=== PATIENT | male | born 1950 | race Caucasian/White ===

== ENCOUNTER 2017-04-30 14:04 | Emergency (ER) | payer MEDICARE | END 2017-04-30 18:05 | disposition home or self-care (01) | LOC: ERS 14:04 | DX: R00.2 Palpitations (principal); E78.5 Hyperlipidemia, unspecified; I10 Essential (primary) hypertension; I47.1 Supraventricular tachycardia; Z87.891 Personal history of nicotine dependence; Z79.82 Long term (current) use of aspirin; Z79.899 Other long term (current) drug therapy | CPT/HCPCS: 99284 ==

== ENCOUNTER 2018-04-02 11:11 | Outpatient (CLI) | payer MEDICARE ==
--- NOTE | 2018-04-02 14:52 | ULT ---
HEPATIC ULTRASOUND DOPPER DUPLEX: 04/02/2018 HISTORY: A 67-year-old male with hepatitis C. TECHNIQUE: Bruno-scale images of the liver and spleen. Color-flow and spectral analysis of major vessels associated with the liver. FINDINGS: The liver is enlarged, has lobular margins, and has heterogeneously increased echogenicity and hetero geneous echotexture. Because of body habitus, the deep portions of the liver are not well visualized . Please note that CT or MRI with and without contrast would be much more sensitive for the detectio n of hepatic neoplasm, compared to ultrasound. The gallbladder is distended, has normal wall thickness, a small amount of sludge, and several tiny, mobile gallstones. The spleen is 16.5 x 5.5 x 5.5 cm, with a lobular hilum. Appropriate pulsed Doppler waveforms with hepatopetal flow in the splenic, main portal, and left and right portal, veins. Hepatic artery waveform normal. Hepatofugal flow with appropriate pulsed Doppler waveform in the left, middle, and right hepatic vein s. IMPRESSION: 1. Hepatic cirrhosis and hepatomegaly. 2. Splenomegaly. 3. Cholelithiasis. 4. Appropriate pulsed Doppler waveforms and directionality of flow in the major vessels associated w ith the liver. POS: JC
== END 2018-04-02 11:12 | disposition home or self-care (01) ==
LOC: SCSULT 11:11
PROVIDERS: ATTEND Internal Medicine Gastroenterology
DX: K74.60 Unspecified cirrhosis of liver (principal); K22.70 Barrett's esophagus without dysplasia; R10.11 Right upper quadrant pain; K80.20 Calculus of gallbladder without cholecystitis without obstruction; R16.2 Hepatomegaly with splenomegaly, not elsewhere classified; Z86.010 Personal history of colon polyps; Z86.19 Personal history of other infectious and parasitic diseases
CPT/HCPCS: 76705

== ENCOUNTER 2018-10-01 09:19 | Outpatient (CLI) | payer MEDICARE ==
[2018-10-01 10:33] LABS: Estimated GFR-MDRD - POC Greater than 90
--- NOTE | 2018-10-01 11:24 | MRI ---
EXAM: MRI of the abdomen without and with contrast COMPARISON: None HISTORY: Cirrhosis of the liver TECHNIQUE: Multiplanar multi sequence MR images were taken of the abdomen without and with IV contras t. FINDINGS: Liver: Slightly nodular in appearance. There is loss of signal on out of phase images consistent with fatty infiltration. Gallbladder: Multiple filling defects consistent with cholelithiasis Common bile duct: Normal caliber without filling defects Adrenal glands: Unremarkable. Kidneys: 5.0 cm right renal cysts. Smaller high T2 signal foci in the right kidney represent smaller cysts. Spleen: Unremarkable. Pancreas: Unremarkable. Retroperitoneum: No enlarged lymph nodes Bones: No marrow signal abnormality. IMPRESSION: 1. Cholelithiasis 2. Right renal cysts 3. Cirrhosis without suspicious liver lesions 4. Fatty liver
[2018-10-01] MEDS ORDERED: Gadobenate Dimeglumine 529 MG/1 ML (20ML VIAL) ONE (16:24)
== END 2018-10-01 09:20 | disposition home or self-care (01) ==
LOC: BICMRI 09:19
PROVIDERS: ATTEND Physician Assistant Medical
DX: K74.60 Unspecified cirrhosis of liver (principal); K22.70 Barrett's esophagus without dysplasia; I85.00 Esophageal varices without bleeding; K80.20 Calculus of gallbladder without cholecystitis without obstruction; N28.1 Cyst of kidney, acquired; K76.0 Fatty (change of) liver, not elsewhere classified; Z86.010 Personal history of colon polyps
CPT/HCPCS: 74183; 82565; A9577

== ENCOUNTER 2019-04-15 09:50 | Outpatient (CLI) | payer MEDICARE ==
--- NOTE | 2019-04-15 10:46 | ULT ---
US Hepatic Doppler: 04/15/2019 12:00 AM CLINICAL HISTORY: Chronic hepatitis. Cirrhosis. STUDY: Right upper quadrant ultrasound of liver. TECHNIQUE: Multiplanar grayscale and color Doppler images were obtained in a ultrasound of the right upper quadrant of the abdomen. Spectral analysis of the Doppler waveforms of the hepatic and splenic vessels were performed. COMPARISON: 04/02/2018 and MRI abdomen 10/01/2018 FINDINGS: Liver: Size: Normal. Echogenicity: Hyperechoic consistent with hepatic steatosis. Contour: Nodular consistent with cirrhosis. Mass: None. Bile ducts: No intrahepatic or extrahepatic biliary dilatation. Common bile duct measures 4 mm. Gallbladder: Cholelithiasis. Pancreas: Head and body appear normal; tail obscured by bowel gas. Hepatic veins: Normal waveforms. Normal directional flow. Portable veins: Normal waveforms. Normal directional flow. Hepatic arteries: Normal waveforms. Normal directional flow. Splenic vein: Normal waveforms. Normal directional flow. Splenic artery: Normal waveforms. Normal directional flow. The spleen is normal in echogenicity without focal lesions and measures 14.3cm in length. IMPRESSION: 1. Fatty liver 2. Cirrhosis with splenomegaly
== END 2019-04-15 09:51 | disposition home or self-care (01) ==
LOC: BICULT 09:50
PROVIDERS: ATTEND Internal Medicine
DX: K22.70 Barrett's esophagus without dysplasia (principal); K80.20 Calculus of gallbladder without cholecystitis without obstruction; K74.60 Unspecified cirrhosis of liver; I85.00 Esophageal varices without bleeding; R10.11 Right upper quadrant pain; K76.0 Fatty (change of) liver, not elsewhere classified; R16.1 Splenomegaly, not elsewhere classified; Z86.010 Personal history of colon polyps
CPT/HCPCS: 76705

== ENCOUNTER 2019-09-06 05:33 | Outpatient (CLI) | payer MEDICARE, OTHER ==
[2019-09-07 12:16] LABS: SARS-CoV-2 MS2 Positive; SARS-CoV-2 N Gene Negative; SARS-CoV-2 S Gene Negative; SARS-CoV-2 orf1ab Negative
== END 2019-09-06 05:34 | disposition home or self-care (01) ==
LOC: LABBT 05:33
PROVIDERS: ATTEND Internal Medicine
DX: Z01.812 Encounter for preprocedural laboratory examination (principal); Z11.59 Encounter for screening for other viral diseases; K80.20 Calculus of gallbladder without cholecystitis without obstruction; K74.60 Unspecified cirrhosis of liver; K22.70 Barrett's esophagus without dysplasia; R10.11 Right upper quadrant pain; Z86.010 Personal history of colon polyps
CPT/HCPCS: 87635; U0003

== ENCOUNTER 2019-09-09 07:20 | Day surgery (SDC) | payer MEDICARE ==
[2019-09-03 12:41] VITALS: BMI 32.7
[2019-09-09] MEDS ORDERED: PROPOFOL 200 MG/20 ML VIAL ONE (11:59)
[2019-09-09] MEDS ORDERED: Lidocaine 1% PF 5 ML VIAL ONE (11:59)
--- NOTE | 2019-09-09 12:48 | OP ---
DATE OF PROCEDURE: 09/09/2019 PROCEDURES PERFORMED: 1. Esophagogastroduodenoscopy (diagnostic). 2. Colonoscopy with polypectomy. INDICATIONS FOR PROCEDURE: Personal history of cirrhosis of the liver (screening for esophageal varices), [place] esophagus, and personal history of colonic polyps. DESCRIPTION OF PROCEDURE: After the risks and benefits of the procedures were explained to the patient including risks of bleeding, infection, perforation, reactions to anesthesia, aspiration and/or pain, informed consent was obtained. The patient was then taken to the endoscopy suite where deep sedation was administered via propofol and anesthesia support. Once adequate sedation was achieved, the standard gastroscope was introduced into the mouth with intubation of the esophagus, stomach, and the proximal small intestines with the findings listed below. The patient tolerated this portion of the procedure well with no immediate perioperative complications. On conclusion of this portion of the procedure, all equipment was removed from the patient and the bed was rotated 180 degrees in anticipation of the colonoscopy. Once the bed was adequately rotated, a digital rectal examination was performed followed by introduction of the standard colonoscope, which was advanced to the terminal ileum without difficulty. The quality of the prep was good with a small amount of semi-solid stool seen throughout the colon, but easily removed with irrigation and suctioning. The patient tolerated this portion of the procedure well with no immediate perioperative complications. On conclusion of the procedure, all equipment was removed from the patient and he was transferred to Day Stay in satisfactory condition. EGD FINDINGS: Esophagus: Normal-appearing mucosa was seen in the proximal and mid esophagus. Small (grade 1/2) esophageal varices were seen in the distal esophagus without any high-risk stigmata of active or recent bleeding. Given his lack of bleeding from a variceal source, no intervention was taken today. [place]-colored mucosa was also seen in the distal esophagus, extending proximally with the maximum extension approximately 1 cm proximal to the gastroesophageal junction. No biopsies were taken today given the concurrent finding of esophageal varices and increased risk of bleeding. The diaphragmatic pinch and the gastroesophageal junction were both well seen at 40 cm past the incisors. There was no evidence of erosions, ulcerations, mass lesions, or active/recent bleeding. Stomach: A mild amount of increased mucosal erythema was seen in the gastric fundus, body and extending into the greater curvature that exhibited a mild mosaic type appearance. There were no other additional findings associated with this. Otherwise, normal-appearing mucosa was seen in the gastric cardia, antrum, and incisura. There was no evidence of erosions, ulcerations, mass lesions, or active/recent bleeding. Duodenum: Normal-appearing mucosa was seen in both the duodenal bulb and second portion of the duodenum. There was no evidence of erosions, ulcerations, mass lesions, or active/recent bleeding. IMPRESSION: 1. Mild portal hypertensive gastropathy. 2. [place]-colored mucosa in the distal esophagus, consistent with prior [place] esophagus ([place] classification C0 M1). 3. Small (grade 1/2) distal esophageal varices without evidence of gastric varices. COLONOSCOPY FINDINGS: Digital rectal exam: Large external hemorrhoids were seen on external examination with mild oozing of blood with manipulation. No masses were palpated on rectal exam. Colon findings: Normal-appearing mucosa was seen at the terminal ileum as well as at the ileocecal valve and appendiceal orifice. Four polyps, measuring 2 to 4 mm in size, were seen in the cecum and completely removed with a combination of biopsy forceps and cold snare polypectomy. They were retrieved and placed in a specimen jar for further evaluation. Five additional polyps were seen in the ascending colon, measuring 2 to 8 mm in size, and removed with a combination of biopsy forceps and snare cautery polypectomy. They were all retrieved and placed in a specimen jar for further evaluation. A 3- to 4-mm polyp was seen in the proximal transverse colon and completely removed with cold snare polypectomy. It was retrieved and placed in a specimen jar for further evaluation. A single diverticulum was seen in the transverse colon as well as multiple small and large mouth diverticula in the descending and sigmoid colons. There were no other associated abnormalities with this finding. A 3-mm polyp was seen in the rectum and completely removed with cold snare polypectomy. It was retrieved and placed in a specimen jar for further evaluation. Small internal hemorrhoids were seen on rectal retroflexion without evidence of bleeding, but evidence of increased erythema at the squamocolumnar junction. IMPRESSION: 1. Four 2- to 4-mm cecal polyps status post biopsy forceps and cold snare polypectomy. 2. Five ascending colon polyps, measuring 2 to 8 mm, status post biopsy forceps and snare cautery polypectomy. 3. A 3- to 4=mm transverse colon polyp status post cold snare polypectomy. 4. [id number] left-sided diverticulosis. 5. A 3- to 4-mm rectal polyp status post cold snare polypectomy. 6. Small internal, but large external hemorrhoids (mild oozing of blood with the external hemorrhoids, likely due to prep). RECOMMENDATIONS: 1. We will follow up on the polyp results with repeat colonoscopy interval depending on pathology report. 2. Would recommend a higher fiber diet given the presence of diverticulosis and hemorrhoids. 3. Would recommend Preparation-H maximum strength twice daily x14 days for the external hemorrhoids. 4. Would consider placing the patient on nonselective beta-blockade when follow up in the GI clinic due to the varices on examination today. 5. Would continue the patient on PPI daily given the presence of salmon-colored mucosa, consistent with [place] esophagus (not biopsied today due to the concurrent presence of esophageal varices). 6. Follow up in the GI Clinic as scheduled in 6 months. Job ID: [id number]
== END 2019-09-09 11:48 | disposition home or self-care (01) ==
LOC: SDC 07:20
PROVIDERS: ATTEND Internal Medicine
PROC: 0DJ08ZZ Inspection of Upper Intestinal Tract, Via Natural or Artificial Opening Endoscopic (ICD-10-PCS; principal; 2019-09-09)
PROC: 0DBK8ZX Excision of Ascending Colon, Via Natural or Artificial Opening Endoscopic, Diagnostic (ICD-10-PCS; 2019-09-09)
PROC: 0DBH8ZX Excision of Cecum, Via Natural or Artificial Opening Endoscopic, Diagnostic (ICD-10-PCS; 2019-09-09)
PROC: 0DBK8ZX Excision of Ascending Colon, Via Natural or Artificial Opening Endoscopic, Diagnostic (ICD-10-PCS; 2019-09-09)
PROC: 0DBL8ZX Excision of Transverse Colon, Via Natural or Artificial Opening Endoscopic, Diagnostic (ICD-10-PCS; 2019-09-09)
PROC: 0DBP8ZX Excision of Rectum, Via Natural or Artificial Opening Endoscopic, Diagnostic (ICD-10-PCS; 2019-09-09)
PROC: 0DBH8ZX Excision of Cecum, Via Natural or Artificial Opening Endoscopic, Diagnostic (ICD-10-PCS; 2019-09-09)
DX: K64.4 Residual hemorrhoidal skin tags (principal); D12.2 Benign neoplasm of ascending colon; K62.1 Rectal polyp; K64.8 Other hemorrhoids; K57.30 Diverticulosis of large intestine without perforation or abscess without bleeding; K22.70 Barrett's esophagus without dysplasia; K74.60 Unspecified cirrhosis of liver; I85.10 Secondary esophageal varices without bleeding; K76.6 Portal hypertension; K31.89 Other diseases of stomach and duodenum; K80.20 Calculus of gallbladder without cholecystitis without obstruction; K72.90 Hepatic failure, unspecified without coma; I10 Essential (primary) hypertension; F17.220 Nicotine dependence, chewing tobacco, uncomplicated; I25.10 Atherosclerotic heart disease of native coronary artery without angina pectoris; K21.9 Gastro-esophageal reflux disease without esophagitis; E66.3 Overweight; Z68.33 Body mass index [BMI] 33.0-33.9, adult; Z86.010 Personal history of colon polyps; Z79.82 Long term (current) use of aspirin; Z79.84 Long term (current) use of oral hypoglycemic drugs; Z79.899 Other long term (current) drug therapy
CPT/HCPCS: 88305; J2001; J2704

== ENCOUNTER 2020-09-14 09:49 | Outpatient (CLI) | payer MEDICARE | END 2020-09-14 09:50 | disposition home or self-care (01) | LOC: BICULT 09:49 | PROVIDERS: ATTEND Internal Medicine | DX: I85.00 Esophageal varices without bleeding (principal); K63.5 Polyp of colon; K74.60 Unspecified cirrhosis of liver; R60.0 Localized edema; L30.9 Dermatitis, unspecified; R16.2 Hepatomegaly with splenomegaly, not elsewhere classified; Z86.19 Personal history of other infectious and parasitic diseases | CPT/HCPCS: 76705 ==

== ENCOUNTER 2021-04-12 07:34 | Outpatient (CLI) | payer MEDICARE | END 2021-04-12 07:35 | disposition home or self-care (01) | LOC: BICULT 07:34 | PROVIDERS: ATTEND Internal Medicine | DX: K74.60 Unspecified cirrhosis of liver (principal); R18.8 Other ascites; I85.00 Esophageal varices without bleeding; K63.5 Polyp of colon; R16.2 Hepatomegaly with splenomegaly, not elsewhere classified; K80.20 Calculus of gallbladder without cholecystitis without obstruction; Z86.19 Personal history of other infectious and parasitic diseases | CPT/HCPCS: 76705 ==

== ENCOUNTER 2021-08-06 08:30 | Outpatient (CLI) | payer MEDICARE | END 2021-08-06 08:31 | disposition home or self-care (01) | LOC: BICULT 08:30 | PROVIDERS: ATTEND Internal Medicine | DX: K74.60 Unspecified cirrhosis of liver (principal); I85.00 Esophageal varices without bleeding; K63.5 Polyp of colon; R18.8 Other ascites; Z86.19 Personal history of other infectious and parasitic diseases | CPT/HCPCS: 76705 ==

== ENCOUNTER 2021-09-03 12:22 | Outpatient (CLI) | payer MEDICARE | END 2021-09-03 12:23 | disposition home or self-care (01) | LOC: SCSMRI 12:22 | PROVIDERS: ATTEND Orthopaedic Surgery | DX: S83.242A Other tear of medial meniscus, current injury, left knee, initial encounter (principal); M25.462 Effusion, left knee; M94.8X6 Other specified disorders of cartilage, lower leg ==

== ENCOUNTER 2021-12-30 11:04 | Outpatient (CLI) | payer MEDICARE ==
[2021-12-30 11:59] LABS: #Eosinphils 0.1 10x3/uL (0.0-0.5); #Monocytes 0.5 10x3/uL (0.0-1.1); #Neutrophils 3.6 10x3/uL (1.5-8.4); %Basophils 0.6 % (0.0-2.0); %Eosinophils 1.3 % (0.0-6.0); %Lymphocytes 21.7 % (18.0-47.0); %Monocytes 8.6 % (0.0-10.0); %Neutrophils 67.6 % (40.0-75.0); Hemoglobin 15.4 g/dL (13.5-17.5); Mean Corpuscular Volume 91.3 fl (81.2-95.1); Mean Platelet Volume 12.3 fl (7.4-10.4); Platelet Count 100 10x3/uL (150-450); RBC Distribution Width 12.9 % (11.5-14.5); Red Blood Cell (RBC) Count 4.82 10x6/uL (4.32-5.72); White Blood Cell (WBC) Count 5.4 10x3/uL (3.5-10.5)
[2021-12-30 12:13] LABS: Anion Gap 14 mmol/L (10-20); BUN (Urea Nitrogen) 20 mg/dL (8.4-25.7); Calc. Creatinine Clearance 0 mL/min (70-130); Calcium 9.6 mg/dL (7.8-10.44); Carbon Dioxide 24 mmol/L (23-31); Chloride 102 mmol/L (98-107); Estimated GFR 92; Glucose 225 mg/dL (80-115); INR-International Normal Ratio 1.2; Potassium 4.4 mmol/L (3.5-5.1); Prothrombin Time 12.4 sec (9.5-12.1); Sodium 136 mmol/L (136-145)
[2021-12-30 12:26] LABS: Platelet Morphology Comment Appears Decreased
== END 2021-12-30 11:05 | disposition home or self-care (01) ==
LOC: LABBT 11:04
PROVIDERS: ATTEND Orthopaedic Surgery
DX: Z01.818 Encounter for other preprocedural examination (principal); M17.12 Unilateral primary osteoarthritis, left knee
CPT/HCPCS: 80048; 85025; 85610; 87081; 93005; 93010

== ENCOUNTER 2022-01-06 10:57 | Outpatient (CLI) | payer MEDICARE | END 2022-01-06 10:58 | disposition home or self-care (01) | LOC: ULT 10:57 | PROVIDERS: ATTEND Orthopaedic Surgery | DX: M79.605 Pain in left leg (principal) ==

== ENCOUNTER 2022-04-18 06:49 | Outpatient (CLI) | payer MEDICARE | END 2022-04-18 06:50 | disposition home or self-care (01) | LOC: BICULT 06:49 | PROVIDERS: ATTEND Internal Medicine | DX: K74.60 Unspecified cirrhosis of liver (principal); R18.8 Other ascites; I85.00 Esophageal varices without bleeding; K63.5 Polyp of colon; K80.20 Calculus of gallbladder without cholecystitis without obstruction; R16.2 Hepatomegaly with splenomegaly, not elsewhere classified; K83.9 Disease of biliary tract, unspecified; Z86.19 Personal history of other infectious and parasitic diseases | CPT/HCPCS: 76705 ==

== ENCOUNTER 2022-10-24 05:50 | Day surgery (SDC) | payer MEDICARE ==
[2022-10-21 15:17] VITALS: BMI 34.4
[2022-10-24] MEDS ORDERED: Lidocaine 1% PF 5 ML VIAL ONE ×2 (07:45→08:42)
[2022-10-24] MEDS ORDERED: PROPOFOL 200 MG/20 ML VIAL ONE (08:42)
== END 2022-10-24 11:00 | disposition home or self-care (01) ==
LOC: SDC 05:50
PROVIDERS: ATTEND Internal Medicine
PROC: 06L28CZ Occlusion of Gastric Vein with Extraluminal Device, Via Natural or Artificial Opening Endoscopic (ICD-10-PCS; principal; 2022-10-24)
PROC: 0DB68ZX Excision of Stomach, Via Natural or Artificial Opening Endoscopic, Diagnostic (ICD-10-PCS; 2022-10-24)
DX: Z12.11 Encounter for screening for malignant neoplasm of colon (principal); D12.3 Benign neoplasm of transverse colon; K57.30 Diverticulosis of large intestine without perforation or abscess without bleeding; K64.8 Other hemorrhoids; K29.50 Unspecified chronic gastritis without bleeding; K64.4 Residual hemorrhoidal skin tags; K76.6 Portal hypertension; K31.89 Other diseases of stomach and duodenum; K31.7 Polyp of stomach and duodenum; K22.70 Barrett's esophagus without dysplasia; K74.60 Unspecified cirrhosis of liver; E11.9 Type 2 diabetes mellitus without complications; I85.00 Esophageal varices without bleeding; R18.8 Other ascites; Z80.0 Family history of malignant neoplasm of digestive organs; I25.10 Atherosclerotic heart disease of native coronary artery without angina pectoris; Z90.49 Acquired absence of other specified parts of digestive tract; Z79.899 Other long term (current) drug therapy; Z79.84 Long term (current) use of oral hypoglycemic drugs; Z79.82 Long term (current) use of aspirin; Z88.5 Allergy status to narcotic agent
CPT/HCPCS: 71045; 88305; 88342; J2704

== ENCOUNTER 2023-02-24 09:00 | Outpatient (CLI) | payer MEDICARE | END 2023-02-24 09:01 | disposition home or self-care (01) | LOC: BICULT 09:00 | PROVIDERS: ATTEND Internal Medicine | DX: E10.65 Type 1 diabetes mellitus with hyperglycemia (principal); K74.60 Unspecified cirrhosis of liver; D12.3 Benign neoplasm of transverse colon; I85.00 Esophageal varices without bleeding; R18.8 Other ascites | CPT/HCPCS: 76705 ==

== ENCOUNTER 2023-08-16 05:28 | Observation (INO) | payer MEDICARE ==
[2023-08-16] MEDS ORDERED: Tranexamic Acid 1,000 MG/10 ML VIAL ONE ×2 (06:10→12:20)
[2023-08-16] MEDS ORDERED: Vancomycin (BATCH) 1.5 GM/300 ML BAG ONE (06:10)
[2023-08-16] MEDS ORDERED: Sodium Chloride 0.9% 100 ML ONE ×3 (06:10→12:20)
[2023-08-16] MEDS ORDERED: Bupivacaine PF 0.5% 30 ML VIAL ONE ×2 (06:28→06:54)
[2023-08-16] MEDS ORDERED: PROPOFOL 20 ML ONE (06:29)
[2023-08-16] MEDS ORDERED: Midazolam HCl 2 mg/2 ml Vial ONE (06:29)
[2023-08-16] MEDS ORDERED: fentaNYL PF 100 MCG/2 ML SYRINGE ONE (06:29)
[2023-08-16] MEDS ORDERED: CEFAZOLIN 2 GM VIAL ONE (07:12)
[2023-08-16] MEDS ORDERED: Rocuronium Bromide 10 MG/ML (10ML VIAL) ONE (07:47)
[2023-08-16] MEDS ORDERED: Dexamethasone 20 MG/5 ML VIAL ONE (07:47)
[2023-08-16] MEDS ORDERED: Lidocaine 1% PF 5 ML VIAL ONE (07:47)
[2023-08-16] MEDS ORDERED: PHENYLEPHRINE-NS 100 MCG/ML 10 ML SYRINGE ONE (08:02)
[2023-08-16] MEDS ORDERED: Glycopyrrolate 0.2 MG/ML 5 ML SYRINGE ONE (08:02)
[2023-08-16] MEDS ORDERED: Ondansetron PF 4 MG/2 ML Vial ONE (08:18)
[2023-08-16] MEDS ORDERED: Dexmedetomidine 200 MCG/2 ML VIAL ONE (08:22)
[2023-08-16] MEDS ORDERED: ePHEDrine Sulfate 50 MG/10 ML VIAL ONE (08:23)
[2023-08-16] MEDS ORDERED: SUGAMMADEX SODIUM 200 MG/2 ML VIAL ONE (09:17)
[2023-08-16] MEDS ORDERED: HYDROmorphone 2 MG/ML VIAL ONE (09:20)
[2023-08-16] MEDS ORDERED: fentaNYL 50 mcg/mL 1 mL Vial SLOW IVP PRN (10:22)
[2023-08-16] MEDS ORDERED: Ropivacaine 0.2% 550 ML 550 ML NERVE BLCK SCH (10:30)
[2023-08-16] MEDS ORDERED: Ondansetron PF 4 MG/2 ML Vial IVP PRN ×2 (10:30→11:44)
[2023-08-16] MEDS ORDERED: Promethazine HCl 25 MG/ML VIAL IM PRN ×2 (10:30→11:44)
[2023-08-16] MEDS ORDERED: Zolpidem Tartrate 5 MG TAB PO PRN ×2 (10:30→11:44)
[2023-08-16] MEDS ORDERED: fentaNYL 50 mcg/mL 1 mL Vial ONE ×3 (11:12→12:20)
[2023-08-16] MEDS ORDERED: Acetaminophen 325 MG TAB PO PRN (11:44)
[2023-08-16] MEDS ORDERED: diphenhydrAMINE 25 MG CAP PO PRN (11:44)
[2023-08-16] MEDS: Tranexamic Acid 1,000 MG in Sodium Chloride 0.9% 100 ML IVPB SCH (14:06)
[2023-08-16] MEDS: Sodium Chloride 0.9% 1,000 ML IV SCH (14:06)
[2023-08-16 15:29] VITALS: BMI 31.4
[2023-08-16] MEDS: CEFAZOLIN 2 GM in Sodium Chloride 0.9% 100 ML IVPB SCH (15:35)
[2023-08-16] MEDS: traMADol HCl 50 MG TAB PO PRN (15:35)
[2023-08-16] MEDS: Vancomycin 1.5 GM in Sodium Chloride 0.9% 250 ML 300 ML IVPB SCH (17:26)
[2023-08-16] MEDS: Propranolol HCl 20 MG TAB PO SCH (20:32)
[2023-08-16] MEDS: Aspirin 81 mg Enteric Coated Tablet PO SCH (20:32)
[2023-08-17] MEDS: oxyCODONE 5 MG TAB PO PRN (03:52)
[2023-08-17] MEDS: Ferrous Gluconate 324 MG TAB PO SCH (08:14)
[2023-08-17] MEDS: Senokot S 8.6-50 MG TAB PO SCH (08:15)
[2023-08-17] MEDS: Pantoprazole DR 40 MG TAB PO SCH (08:15)
[2023-08-17] MEDS: CeleCOXIB 100 MG CAP PO SCH (08:15)
[2023-08-17 08:16] VITALS: BP 121/68; TEMP 98.2
[2023-08-17] MEDS: Spironolactone 25 MG TAB PO SCH (08:20)
[2023-08-17] MEDS ORDERED: Aspirin 81 mg Enteric Coated Tablet PO SCH (09:00)
[2023-08-17] MEDS: Multivitamin W/ Minerals 1 TAB PO SCH (10:07)
[2023-08-17 11:19] LABS: Hematocrit 37.5 % (42.0-52.0); Hemoglobin 12.6 g/dL (14.0-18.0); Mean Corpuscular Hemoglobin 32.2 pg (27.0-31.0); Mean Corpuscular Volume 94.9 fL (78.0-98.0); Mean Platelet Volume 12.1 fL (7.4-10.4); Platelet Count 71 10x3/uL (130-400); RBC Distribution Width 13.9 % (11.5-14.5); Red Blood Cell (RBC) Count 3.91 mill/uL (4.70-6.10)
== END 2023-08-17 13:37 | disposition home or self-care (01) ==
LOC: SDC 05:28 → SURG B 13:47
PROVIDERS: ADMIT Orthopaedic Surgery; ATTEND Orthopaedic Surgery
PROC: 0SRC0JZ Replacement of Right Knee Joint with Synthetic Substitute, Open Approach (ICD-10-PCS; principal; 2023-08-16)
PROC: 3E0T3BZ Introduction of Anesthetic Agent into Peripheral Nerves and Plexi, Percutaneous Approach (ICD-10-PCS; 2023-08-16)
DX: M17.11 Unilateral primary osteoarthritis, right knee (principal); M21.061 Valgus deformity, not elsewhere classified, right knee; I10 Essential (primary) hypertension; Z90.49 Acquired absence of other specified parts of digestive tract; Z96.652 Presence of left artificial knee joint; Z79.899 Other long term (current) drug therapy
CPT/HCPCS: 27447; 64447; 85027; 97110; 97116 ×2; 97530; A4306; C1713; C1776; C1889; J0665; J1100; J1170; J2250; J2405; J2704; J2795; J3010; J3370 ×2; J3490; J7050 ×2; 36415

== ENCOUNTER 2024-01-29 07:59 | Outpatient (CLI) | payer MEDICARE | END 2024-01-29 08:00 | disposition home or self-care (01) | LOC: BICULT 07:59 | PROVIDERS: ATTEND Internal Medicine | DX: D12.3 Benign neoplasm of transverse colon (principal); I85.00 Esophageal varices without bleeding; R18.8 Other ascites; K74.60 Unspecified cirrhosis of liver; K80.20 Calculus of gallbladder without cholecystitis without obstruction; R16.1 Splenomegaly, not elsewhere classified | CPT/HCPCS: 76705 ==

== ENCOUNTER 2025-01-24 10:38 | Outpatient (CLI) | payer OTHER | END 2025-01-24 10:39 | disposition home or self-care (01) | LOC: ULT 10:38 | PROVIDERS: ATTEND Internal Medicine | DX: K74.60 Unspecified cirrhosis of liver (principal); I85.00 Esophageal varices without bleeding; R18.8 Other ascites; K64.9 Unspecified hemorrhoids; E78.5 Hyperlipidemia, unspecified; R16.1 Splenomegaly, not elsewhere classified; K80.20 Calculus of gallbladder without cholecystitis without obstruction | CPT/HCPCS: 76705 ==